=== PATIENT | female | born 1960 | race Caucasian/White ===

== ENCOUNTER 2016-11-14 07:44 | Outpatient (RCR) | payer OTHER | END 2016-12-19 13:11 | LOC: OT 07:44 | DX: M25.532 Pain in left wrist (principal) ==

== ENCOUNTER → 2017-03-21 | Outpatient (REF) | LOC: LAB 18:23 | DX: Z01.89 Encounter for other specified special examinations (principal) ==

== ENCOUNTER → 2017-08-06 | Outpatient (CLI) | payer BC | LOC: LAB 15:33 | DX: K21.9 Gastro-esophageal reflux disease without esophagitis (principal); R10.11 Right upper quadrant pain ==

== ENCOUNTER → 2017-08-08 | Outpatient (CLI) | payer BC | LOC: RAD 09:49 | DX: K21.9 Gastro-esophageal reflux disease without esophagitis (principal); R10.11 Right upper quadrant pain; K76.0 Fatty (change of) liver, not elsewhere classified ==

== ENCOUNTER 2017-09-21 08:00 | Outpatient (RCR) | payer BC, OTHER | END 2017-09-21 08:30 | disposition home or self-care (01) | LOC: PT 08:00 | DX: Z47.1 Aftercare following joint replacement surgery (principal); Z96.652 Presence of left artificial knee joint ==

== ENCOUNTER → 2018-08-22 | Outpatient (CLI) | payer BC ==
[2018-08-22 09:31] LABS: HEMATOCRIT 45.2 % (37.0-47.0); HEMOGLOBIN 15.1 g/dL (12.5-16.0); MEAN CELL VOLUME 84 fl (78-100); MEAN CORPUSCULAR HEMOGLOBIN 28 pg (27-31); MEAN CORPUSCULAR HGB CONC 33 g/dL (33-37); MEAN PLATELET VOLUME 9.9 fl (7.4-10.4); PLATELET COUNT 232 K/mm3 (130-400); RED BLOOD COUNT 5.36 M/mm3 (4.10-5.30); RED CELL DISTRIBUTION WIDTH 12.5 % (11.5-14.5); WHITE BLOOD COUNT 4.9 K/mm3 (4.8-10.8)
[2018-08-22 09:46] LABS: ALBUMIN 4.1 g/dL (3.5-5.0); CALCIUM 9.9 mg/dL (8.4-10.2); POTASSIUM 3.9 mmol/L (3.6-5.0); TOTAL BILIRUBIN 0.4 mg/dL (0.2-1.3); TOTAL PROTEIN 7.2 g/dL (6.3-8.2)
[2018-08-22 09:50] LABS: LYMPHOCYTE 33 % (20-51); MONOCYTE 9 % (3-10); NEUTROPHILS 54 % (42-75)
== END ==
LOC: LAB 09:06
PROVIDERS: Physician Assistant
DX: J01.00 Acute maxillary sinusitis, unspecified (principal); B99.9 Unspecified infectious disease; H73.892 Other specified disorders of tympanic membrane, left ear; R68.89 Other general symptoms and signs; F41.8 Other specified anxiety disorders; N95.1 Menopausal and female climacteric states

== ENCOUNTER → 2018-11-18 | Outpatient (CLI) | payer BC ==
[2018-11-19 09:15] LABS: LYME DISEASE EIA Negative (Negative)
== END ==
LOC: LAB 08:20
PROVIDERS: Nurse Practitioner
DX: A69.20 Lyme disease, unspecified (principal); W57.XXXA Bitten or stung by nonvenomous insect and other nonvenomous arthropods, initial encounter

== ENCOUNTER → 2019-05-16 | Outpatient (CLI) | payer BC | LOC: RAD 08:32 | DX: M19.042 Primary osteoarthritis, left hand (principal); M77.31 Calcaneal spur, right foot ==

== ENCOUNTER 2019-10-10 10:00 | Outpatient (RCR) | payer BC | END 2019-12-15 | disposition still patient (30) | LOC: OT | DX: M19.042 Primary osteoarthritis, left hand (principal) ==

== ENCOUNTER → 2020-01-12 | Outpatient (CLI) | payer BC ==
[2020-01-12 15:30] LABS: BASO # 0.1 (0.02-0.10); EOS # 0.3 (0.04-0.40); EOS % 4.5 % (1.0-5.0); HEMATOCRIT 45.6 % (37.0-47.0); LYMPH# 1.7 (1.50-4.00); MEAN CELL VOLUME 88 fl (78-100); MEAN CORPUSCULAR HEMOGLOBIN 29 pg (27-31); MEAN CORPUSCULAR HGB CONC 33 g/dL (33-37); MEAN PLATELET VOLUME 9.6 fl (7.4-10.4); MONO # 0.7 (0.20-0.80); NEU # 3.1 (1.40-6.50); PLATELET COUNT 257 K/mm3 (130-400); RED CELL DISTRIBUTION WIDTH 12.7 % (11.5-14.5); WHITE BLOOD COUNT 5.8 K/mm3 (4.8-10.8)
[2020-01-12 15:34] LABS: ALBUMIN 4.4 g/dL (3.5-5.0)
[2020-01-12 15:35] LABS: POTASSIUM 3.8 mmol/L (3.5-5.1); SODIUM 140 mmol/L (136-145)
[2020-01-12 15:36] LABS: CALCIUM 9.9 mg/dL (8.3-10.5)
[2020-01-12 15:37] LABS: GLUCOSE 122 mg/dL (65-105); TOTAL PROTEIN 7.5 g/dL (6.4-8.3)
[2020-01-12 15:38] LABS: CARBON DIOXIDE 29 mmol/L (22-29)
[2020-01-12 15:39] LABS: TOTAL BILIRUBIN 0.4 mg/dL (0.2-1.2)
[2020-01-12 15:42] LABS: AST-SGOT 29 U/L (5-34)
[2020-01-12 15:44] LABS: ALT/SGPT 38 U/L (0-55)
[2020-01-12 16:23] LABS: ERYTHROCYTE SEDIMENTATION RATE 5 mm/hr (0-30)
== END ==
LOC: RAD 15:08
PROVIDERS: Internal Medicine
DX: R05 Cough (principal); R06.2 Wheezing; R06.02 Shortness of breath

== ENCOUNTER → 2021-05-04 | Outpatient (CLI) | payer BC | LOC: LAB 15:49 | DX: Z20.822 Contact with and (suspected) exposure to COVID-19 (principal) ==

== ENCOUNTER → 2022-03-13 | Outpatient (CLI) | payer BC | LOC: RAD 08:57 | DX: M18.11 Unilateral primary osteoarthritis of first carpometacarpal joint, right hand (principal); M25.531 Pain in right wrist; M79.631 Pain in right forearm ==

== ENCOUNTER → 2022-04-03 | Outpatient (CLI) | payer BC ==
[2022-04-03 09:24] LABS: BASO # 0.05 K/mm3 (0.02-0.10); EOS # 0.25 K/mm3 (0.04-0.40); EOS % 5.1 % (1.0-5.0); HEMATOCRIT 47.4 % (37.0-47.0); HEMOGLOBIN 15.6 g/dL (12.5-16.0); LYMPH# 1.73 K/mm3 (1.50-4.00); MEAN CELL VOLUME 88 fl (78-100); MEAN CORPUSCULAR HEMOGLOBIN 29 pg (27-31); MEAN CORPUSCULAR HGB CONC 33 g/dL (33-37); MEAN PLATELET VOLUME 9.2 fl (7.4-10.4); MONO # 0.54 K/mm3 (0.20-0.80); NEU # 2.28 K/mm3 (1.40-6.50); PLATELET COUNT 216 K/mm3 (130-400); RED CELL DISTRIBUTION WIDTH 12.2 % (11.5-14.5); WHITE BLOOD COUNT 4.9 K/mm3 (4.8-10.8)
[2022-04-03 09:32] LABS: ALBUMIN 4.1 g/dL (3.4-4.8)
[2022-04-03 09:33] LABS: CALCIUM 9.6 mg/dL (8.3-10.5)
[2022-04-03 09:34] LABS: TOTAL PROTEIN 7.2 g/dL (6.2-8.1)
[2022-04-03 09:36] LABS: TOTAL BILIRUBIN 0.4 mg/dL (0.2-1.2)
== END ==
LOC: LAB 08:40
PROVIDERS: Internal Medicine
DX: Z00.00 Encounter for general adult medical examination without abnormal findings (principal); Z12.11 Encounter for screening for malignant neoplasm of colon

== ENCOUNTER → 2022-09-18 | Outpatient (CLI) | payer OTHER | LOC: RAD 11:24 | DX: R05.3 Chronic cough (principal) ==

== ENCOUNTER → 2022-09-21 | Outpatient (CLI) | payer OTHER ==
[2022-09-21 16:29] LABS: BASO # 0.01 K/mm3 (0.02-0.10); EOS # 0.08 K/mm3 (0.04-0.40); EOS % 1.4 % (1.0-5.0); HEMATOCRIT 49.4 % (37.0-47.0); HEMOGLOBIN 16.7 g/dL (12.5-16.0); LYMPH# 1.91 K/mm3 (1.50-4.00); MEAN CELL VOLUME 86 fl (78-100); MEAN CORPUSCULAR HEMOGLOBIN 29 pg (27-31); MEAN CORPUSCULAR HGB CONC 34 g/dL (33-37); MEAN PLATELET VOLUME 9.3 fl (7.4-10.4); MONO # 1.26 K/mm3 (0.20-0.80); NEU # 2.53 K/mm3 (1.40-6.50); PLATELET COUNT 240 K/mm3 (130-400); RED BLOOD COUNT 5.73 M/mm3 (4.10-5.30); RED CELL DISTRIBUTION WIDTH 12.1 % (11.5-14.5); WHITE BLOOD COUNT 5.8 K/mm3 (4.8-10.8)
[2022-09-21 16:33] LABS: POTASSIUM 3.6 mmol/L (3.5-5.1)
[2022-09-21 16:35] LABS: CALCIUM 9.5 mg/dL (8.3-10.5)
[2022-09-21 16:38] LABS: TOTAL BILIRUBIN 0.4 mg/dL (0.2-1.2)
[2022-09-21 16:42] LABS: MAGNESIUM 1.95 mg/dL (1.60-2.60)
== END ==
LOC: LAB 15:50
PROVIDERS: Internal Medicine
DX: R19.7 Diarrhea, unspecified (principal); R11.2 Nausea with vomiting, unspecified

== ENCOUNTER → 2022-09-22 | Outpatient (CLI) | payer OTHER | LOC: LAB 09:36 | DX: Z00.00 Encounter for general adult medical examination without abnormal findings (principal); Z12.11 Encounter for screening for malignant neoplasm of colon ==

== ENCOUNTER 2023-03-06 14:00 | Outpatient (RCR) | payer OTHER | END 2023-03-22 | disposition home or self-care (01) | LOC: PT | DX: S82.141D Displaced bicondylar fracture of right tibia, subsequent encounter for closed fracture with routine healing (principal); X58.XXXD Exposure to other specified factors, subsequent encounter ==

== ENCOUNTER → 2023-04-24 | Outpatient (CLI) | payer OTHER ==
[2023-04-24 15:43] LABS: BASO # 0.04 K/mm3 (0.02-0.10); EOS # 0.18 K/mm3 (0.04-0.40); EOS % 3.1 % (1.0-5.0); HEMATOCRIT 45.4 % (37.0-47.0); HEMOGLOBIN 14.9 g/dL (12.5-16.0); LYMPH# 2.02 K/mm3 (1.50-4.00); MEAN CELL VOLUME 88 fl (78-100); MEAN CORPUSCULAR HEMOGLOBIN 29 pg (27-31); MEAN CORPUSCULAR HGB CONC 33 g/dL (33-37); MEAN PLATELET VOLUME 9.1 fl (7.4-10.4); MONO # 0.63 K/mm3 (0.20-0.80); PLATELET COUNT 245 K/mm3 (130-400); RED BLOOD COUNT 5.15 M/mm3 (4.10-5.30); RED CELL DISTRIBUTION WIDTH 11.7 % (11.5-14.5); WHITE BLOOD COUNT 5.9 K/mm3 (4.8-10.8)
[2023-04-24 15:57] LABS: ALBUMIN 4.2 g/dL (3.4-4.8); POTASSIUM 4.1 mmol/L (3.5-5.1)
[2023-04-24 15:58] LABS: CALCIUM 10.1 mg/dL (8.3-10.5)
[2023-04-24 16:00] LABS: TOTAL PROTEIN 7.7 g/dL (6.2-8.1)
[2023-04-24 16:01] LABS: TOTAL BILIRUBIN 0.3 mg/dL (0.2-1.2)
[2023-04-24 16:07] LABS: MAGNESIUM 1.83 mg/dL (1.60-2.60)
[2023-04-24 17:59] LABS: ERYTHROCYTE SEDIMENTATION RATE 16 mm/hr (0-30)
[2023-04-25 00:11] LABS: CALCIUM, IONIZED, SERUM 1.2 mmol/L (1.19-1.41)
[2023-04-26 14:46] LABS: PTH,INTACT 29.7 pg/mL (6.6-88.9)
== END ==
LOC: LAB 15:12
PROVIDERS: Internal Medicine
DX: M85.80 Other specified disorders of bone density and structure, unspecified site (principal); I10 Essential (primary) hypertension; E78.2 Mixed hyperlipidemia

== ENCOUNTER 2023-05-23 08:00 | Outpatient (RCR) | payer OTHER | END 2023-06-21 | disposition home or self-care (01) | LOC: PT | DX: S82.141D Displaced bicondylar fracture of right tibia, subsequent encounter for closed fracture with routine healing (principal); X58.XXXD Exposure to other specified factors, subsequent encounter ==

== ENCOUNTER → 2024-05-08 | Outpatient (CLI) | payer MEDICARE, OTHER | LOC: RAD 12:26 | DX: R05.9 Cough, unspecified (principal) ==

== ENCOUNTER → 2024-05-21 | Outpatient (CLI) | payer MEDICARE, OTHER ==
[2024-05-21 10:32] LABS: BASO # 0.02 K/mm3 (0.02-0.10); EOS % 2.1 % (1.0-5.0); HEMATOCRIT 44.8 % (37.0-47.0); HEMOGLOBIN 14.7 g/dL (12.5-16.0); LYMPH# 2.28 K/mm3 (1.50-4.00); MEAN CELL VOLUME 87 fl (78-100); MEAN CORPUSCULAR HEMOGLOBIN 29 pg (27-31); MEAN CORPUSCULAR HGB CONC 33 g/dL (33-37); MEAN PLATELET VOLUME 9.1 fl (7.4-10.4); MONO # 1.03 K/mm3 (0.20-0.80); NEU # 6.06 K/mm3 (1.40-6.50); PLATELET COUNT 276 K/mm3 (130-400); RED BLOOD COUNT 5.13 M/mm3 (4.10-5.30); RED CELL DISTRIBUTION WIDTH 12.2 % (11.5-14.5); WHITE BLOOD COUNT 9.6 K/mm3 (4.8-10.8)
== END ==
LOC: LAB 10:18
PROVIDERS: Nurse Practitioner Family
DX: J06.9 Acute upper respiratory infection, unspecified (principal)

== ENCOUNTER → 2024-08-26 | Outpatient (CLI) | payer MEDICARE, OTHER | LOC: RAD 14:17 | DX: M25.561 Pain in right knee (principal); M79.604 Pain in right leg ==